=== PATIENT | female | born 1995 | race Two or more races ===

== ENCOUNTER → 2017-09-18 | Outpatient (CLI) | payer OTHER ==
[~2017-09-18] MED LIST: CEFTIN250 MG PO; SENOKOT TAB1 TAB PO
== END | disposition home or self-care (01) ==
LOC: PPH VACUNA 12:22
DX: Z23 Encounter for immunization (principal)

== ENCOUNTER 2018-04-02 19:31 | Emergency (ER) | payer OTHER ==
[~2018-04-02] VITALS: Ht 167.6 cm; Wt 118.8 kg
== END 2018-04-02 21:22 | disposition home or self-care (01) ==
LOC: ER 19:31
DX: J31.2 Chronic pharyngitis (principal); R10.2 Pelvic and perineal pain

== ENCOUNTER 2018-04-16 13:09 | Emergency (ER) | payer OTHER ==
[~2018-04-16] VITALS: Ht 167.6 cm; Wt 117.9 kg
== END 2018-04-16 14:56 | disposition home or self-care (01) ==
LOC: ER 13:09
DX: J06.9 Acute upper respiratory infection, unspecified (principal)

== ENCOUNTER 2018-10-24 00:34 | Emergency (ER) | payer OTHER ==
[~2018-10-24] VITALS: Ht 165.1 cm; Wt 119.7 kg
[2018-10-24] MEDS ORDERED: ALLEGRA-D 12 H1 EACH PO (05:44)
[2018-10-24] MEDS ORDERED: ZYNCOF 20-400120 ML PO (05:44)
[2018-10-24] MEDS ORDERED: DOLOGESIC 500-1 EACH PO (05:44)
== END 2018-10-24 05:50 | disposition home or self-care (01) ==
LOC: ER 00:34
DX: B34.9 Viral infection, unspecified (principal)

== ENCOUNTER 2018-12-10 18:29 | Day surgery (SDC) | payer OTHER ==
[~2018-12-10] VITALS: Ht 167.6 cm; Wt 117.9 kg
[~2018-12-10 18:29] MED LIST changes: +ALLEGRA-D 12 H1 EACH PO; +DOLOGESIC 500-1 EACH PO; +ZYNCOF 20-400120 ML PO
[2018-12-10] MEDS ORDERED: FEROSUL300 MG/6.8 (18:33)
[2018-12-10] MEDS ORDERED: FOLIC ACID1 MG (18:33)
== END 2018-12-11 | disposition home or self-care (01) ==
LOC: ER 18:29 → CIR.AMB 12-11 07:09
DX: O03.4 Incomplete spontaneous abortion without complication (principal)

== ENCOUNTER 2019-09-22 09:56 | Outpatient (CLI) | payer OTHER ==
[~2019-09-22 09:56] MED LIST changes: +FEROSUL300 MG/6.8; +FOLIC ACID1 MG
== END 2019-09-22 10:05 | disposition home or self-care (01) ==
LOC: SONOGRAMA 09:56 → MAMO-SONO 10:15
DX: R10.2 Pelvic and perineal pain (principal)

== ENCOUNTER 2020-08-31 12:24 | Emergency (ER) | payer OTHER ==
[~2020-08-31] VITALS: Ht 167.6 cm; Wt 124.7 kg
== END 2020-08-31 22:07 | disposition home or self-care (01) ==
LOC: ER 12:24
DX: B34.9 Viral infection, unspecified (principal); B96.0 Mycoplasma pneumoniae [M. pneumoniae] as the cause of diseases classified elsewhere; K29.70 Gastritis, unspecified, without bleeding; Z03.818 Encounter for observation for suspected exposure to other biological agents ruled out

== ENCOUNTER 2020-10-08 09:53 | Emergency (ER) | payer OTHER ==
[~2020-10-08] VITALS: Ht 167.6 cm; Wt 124.7 kg
[2020-10-08] MEDS ORDERED: RAYOS1 MG (10:26)
[2020-10-08] MEDS ORDERED: TRAM1TAB98 (10:27)
== END 2020-10-08 16:08 | disposition home or self-care (01) ==
LOC: ER 09:53
DX: R30.0 Dysuria (principal); E86.0 Dehydration; B34.9 Viral infection, unspecified; Z03.818 Encounter for observation for suspected exposure to other biological agents ruled out

== ENCOUNTER 2020-12-14 23:45 | Emergency (ER) | payer OTHER ==
[~2020-12-14] VITALS: Ht 167.6 cm; Wt 115.7 kg
[~2020-12-14 23:45] MED LIST changes: +RAYOS1 MG; +TRAM1TAB98
[2020-12-15] MEDS ORDERED: CIPRO500 MG PO (05:36)
[2020-12-15] MEDS ORDERED: KETO10TA2 PO (05:36)
== END 2020-12-15 06:02 | disposition home or self-care (01) ==
LOC: ER 23:45
DX: N39.0 Urinary tract infection, site not specified (principal); R10.2 Pelvic and perineal pain

== ENCOUNTER 2021-04-18 16:29 | Emergency (ER) | payer OTHER ==
[~2021-04-18] VITALS: Ht 167.6 cm; Wt 120.7 kg
[~2021-04-18 16:29] MED LIST changes: +CIPRO500 MG PO; +KETO10TA2 PO
[2021-04-18] MEDS ORDERED: PANADOL (18:22)
== END 2021-04-18 21:37 | disposition home or self-care (01) ==
LOC: ER 16:29
DX: G43.009 Migraine without aura, not intractable, without status migrainosus (principal)

== ENCOUNTER 2022-02-06 08:54 | Outpatient (CLI) | payer OTHER ==
[~2022-02-06 08:54] MED LIST changes: +PANADOL
== END 2022-02-06 09:03 | disposition home or self-care (01) ==
LOC: RX STUDY 08:54
PROVIDERS: ATTEND Obstetrics & Gynecology
DX: N84.9 Polyp of female genital tract, unspecified (principal)

== ENCOUNTER 2022-04-20 18:20 | Emergency (ER) | payer OTHER ==
[~2022-04-20] VITALS: Ht 167.6 cm; Wt 122.5 kg
[2022-04-20] MEDS ORDERED: DICLOFENAC SODI75 MG PO (21:51)
[2022-04-20] MEDS ORDERED: PEPCID AC20 MG PO (21:51)
== END 2022-04-20 22:00 | disposition home or self-care (01) ==
LOC: ER 18:20
DX: K29.70 Gastritis, unspecified, without bleeding (principal); R10.2 Pelvic and perineal pain

== ENCOUNTER 2022-12-15 09:59 | Emergency (ER) | payer OTHER ==
[~2022-12-15] VITALS: Ht 167.6 cm; Wt 122.5 kg
[~2022-12-15 09:59] MED LIST changes: +DICLOFENAC SODI75 MG PO; +PEPCID AC20 MG PO
== END 2022-12-15 14:04 | disposition home or self-care (01) ==
LOC: ER 09:59
DX: O20.9 Hemorrhage in early pregnancy, unspecified (principal)

== ENCOUNTER 2023-01-12 21:28 | Emergency (ER) | payer OTHER ==
[~2023-01-12] VITALS: Ht 167.6 cm; Wt 122.0 kg
== END 2023-01-13 05:06 | disposition home or self-care (01) ==
LOC: ER 21:28
DX: O21.9 Vomiting of pregnancy, unspecified (principal); O30.009 Twin pregnancy, unspecified number of placenta and unspecified number of amniotic sacs, unspecified trimester; Z3A.00 Weeks of gestation of pregnancy not specified

== ENCOUNTER 2023-06-12 11:31 | Outpatient (CLI) | payer OTHER | END 2023-06-12 12:00 | disposition home or self-care (01) | LOC: NST 11:31 | PROVIDERS: ATTEND Obstetrics & Gynecology Maternal & Fetal Medicine | DX: Z34.83 Encounter for supervision of other normal pregnancy, third trimester (principal) ==

== ENCOUNTER 2023-06-13 10:28 | Outpatient (CLI) | payer OTHER | END 2023-06-13 10:58 | disposition home or self-care (01) | LOC: NST 10:28 | PROVIDERS: ATTEND Obstetrics & Gynecology Maternal & Fetal Medicine | DX: Z34.83 Encounter for supervision of other normal pregnancy, third trimester (principal) ==

== ENCOUNTER → 2023-06-26 | Outpatient (CLI) | payer OTHER | END | disposition home or self-care (01) | LOC: NST 11:26 | PROVIDERS: ATTEND Obstetrics & Gynecology Maternal & Fetal Medicine | DX: Z34.83 Encounter for supervision of other normal pregnancy, third trimester (principal) ==

== ENCOUNTER → 2023-07-10 | Outpatient (CLI) | payer OTHER | END | disposition home or self-care (01) | LOC: NST 13:50 | PROVIDERS: ATTEND Obstetrics & Gynecology Maternal & Fetal Medicine | DX: Z34.83 Encounter for supervision of other normal pregnancy, third trimester (principal) ==

== ENCOUNTER 2023-07-25 10:06 | Outpatient (CLI) | payer OTHER | END 2023-07-25 11:59 | disposition home or self-care (01) | LOC: NST 10:06 | PROVIDERS: ATTEND Obstetrics & Gynecology Gynecology | DX: Z34.83 Encounter for supervision of other normal pregnancy, third trimester (principal) ==

== ENCOUNTER 2023-07-31 11:50 | Outpatient (CLI) | payer OTHER | END 2023-07-31 13:13 | disposition home or self-care (01) | LOC: NST 11:50 | PROVIDERS: ATTEND Obstetrics & Gynecology Maternal & Fetal Medicine | DX: Z34.83 Encounter for supervision of other normal pregnancy, third trimester (principal) ==

== ENCOUNTER 2023-08-02 07:08 | Outpatient (CLI) | payer OTHER | END 2023-08-02 07:30 | disposition home or self-care (01) | LOC: NST 07:08 | PROVIDERS: ATTEND Obstetrics & Gynecology Maternal & Fetal Medicine | DX: Z34.83 Encounter for supervision of other normal pregnancy, third trimester (principal) ==

== ENCOUNTER 2023-08-02 11:56 | Inpatient (IN) | payer OTHER ==
[~2023-08-02] VITALS: Ht 167.6 cm; Wt 131.5 kg
[2023-08-02 13:20] LABS: HEMATOCRIT 35.1 % (36.0-45.00); HEMOGLOBIN 11.7 g/dL (12.0-15.00); MEAN CELL VOLUME 86.2 fL (80.00-100.00); MEAN CORPUSCULAR HEMOGLOBIN 28.9 pg (27.00-32.0); MEAN CORPUSCULAR HGB CONC 33.5 g/dl (32.0-36.0); PLATELET COUNT 209 K/uL (150-450); RED BLOOD COUNT 4.07 M/uL (4.00-6.00); RED CELL DISTRIBUTION WIDTH 14.3 % (11.5-14.5)
[2023-08-02 13:47] LABS: ALBUMIN 2.5 gm/dL (3.4-5.0); BILIRUBIN TOTAL 0.26 mg/dL (0.3-1.2); CALCIUM 9.3 mg/dL (8.5-10.1); CREATININE SERUM 0.61 mg/dL (0.55-1.02); GFR 116.79; POTASSIUM 4.11 mEq/L (3.5-5.1); TOTAL PROTEIN 6.5 gm/dL (6.4-8.2)
[2023-08-02 13:48] LABS: INR < 0.93; PARTIAL THROMBOPLASTIN TIME 30.5 SECONDS (22.0-34.0); PROTHROMBIN TIME 9.7 SECONDS (9.0-11.5)
[2023-08-07] MEDS ORDERED: PRENATAL TABLE1 EAC5 PO (05:43)
[2023-08-08 07:02] LABS: HEMATOCRIT 31.2 % (36.0-45.00); HEMOGLOBIN 10.7 g/dL (12.0-15.00); MEAN CELL VOLUME 85.8 fL (80.00-100.00); MEAN CORPUSCULAR HEMOGLOBIN 29.4 pg (27.00-32.0); MEAN CORPUSCULAR HGB CONC 34.2 g/dl (32.0-36.0); PLATELET COUNT 182 K/uL (150-450); RED BLOOD COUNT 3.64 M/uL (4.00-6.00); RED CELL DISTRIBUTION WIDTH 14.6 % (11.5-14.5)
== END 2023-08-10 15:07 | disposition home or self-care (01) | DRG 788 ==
LOC: LDR 08-07 05:15 → OB/GYN 08-07 07:00 → LDR 08-07 13:41 → O/R 08-07 16:53 → OB/GYN 08-07 17:21
PROVIDERS: Obstetrics & Gynecology; ADMIT Obstetrics & Gynecology Maternal & Fetal Medicine; ATTEND Obstetrics & Gynecology Maternal & Fetal Medicine
PROC: 4A1HXCZ Monitoring of Products of Conception, Cardiac Rate, External Approach (ICD-10-PCS; 2023-08-07)
PROC: 10D00Z1 Extraction of Products of Conception, Low, Open Approach (ICD-10-PCS; principal; 2023-08-07 07:00)
DX: O62.1 Secondary uterine inertia (principal); O30.043 Twin pregnancy, dichorionic/diamniotic, third trimester; Z3A.37 37 weeks gestation of pregnancy; Z37.2 Twins, both liveborn; Z20.822 Contact with and (suspected) exposure to COVID-19

== ENCOUNTER 2024-05-18 10:08 | Emergency (ER) | payer OTHER ==
[~2024-05-18] VITALS: Ht 167.6 cm; Wt 120.2 kg
[~2024-05-18 10:08] MED LIST changes: +PRENATAL TABLE1 EAC5 PO
[2024-05-18] MEDS ORDERED: ORPHENADRINE CITRATE 30 MG/ML AMPUL IM STA (11:05)
[2024-05-18] MEDS ORDERED: KETOROLAC TROMETHAMINE 30 MG VIAL IM STA (11:06)
== END 2024-05-18 11:15 | disposition home or self-care (01) ==
LOC: ER 10:10
DX: M54.32 Sciatica, left side (principal)

== ENCOUNTER 2024-08-27 18:57 | Emergency (ER) | payer OTHER ==
[~2024-08-27] VITALS: Ht 167.6 cm; Wt 120.2 kg
[2024-08-27] MEDS ORDERED: DEXAMETHASONE SODIUM PHOSPHATE 4 MG/ML VIAL IM ONE (21:00)
[2024-08-27] MEDS ORDERED: KETOROLAC TROMETHAMINE 60 MG VIAL IM ONE ×2 (21:00→21:24)
[2024-08-27] MEDS ORDERED: DEXAMETHASONE SODIUM PHOSPHATE 4 MG/ML VIAL ONE (21:25)
[2024-08-27] MEDS ORDERED: IBU600 MG PO (22:49)
== END 2024-08-27 22:52 | disposition home or self-care (01) ==
LOC: ER 18:59
DX: S89.82XA Other specified injuries of left lower leg, initial encounter (principal); W19.XXXA Unspecified fall, initial encounter; Y93.89 Activity, other specified; Y92.89 Other specified places as the place of occurrence of the external cause; Y99.8 Other external cause status

== ENCOUNTER 2024-09-09 07:27 | Emergency (ER) | payer OTHER ==
[~2024-09-09] VITALS: Ht 167.6 cm; Wt 120.2 kg
[~2024-09-09 07:27] MED LIST changes: +IBU600 MG PO
[2024-09-09 07:45] VITALS: BP 119/84; O2SAT 99
[2024-09-09] MEDS ORDERED: CEFTRIAXONE SODIUM 1,000 MG VIAL IM STA (10:35)
[2024-09-09] MEDS ORDERED: KETOROLAC TROMETHAMINE 30 MG VIAL IM STA (10:36)
[2024-09-09] MEDS ORDERED: KETOROLAC TROMETHAMINE 30 MG VIAL ONE (10:40)
[2024-09-09] MEDS ORDERED: CEFTRIAXONE SODIUM 1,000 MG VIAL ONE (10:41)
== END 2024-09-09 11:00 | disposition home or self-care (01) ==
LOC: ER 07:30
DX: J03.90 Acute tonsillitis, unspecified (principal); Z20.822 Contact with and (suspected) exposure to COVID-19